=== PATIENT | female | born 1930 | race Caucasian/White ===

== ENCOUNTER 2017-03-05 14:14 | Emergency (ER) | payer OTHER, MEDICARE | END 2017-03-05 16:56 | disposition home or self-care (01) | LOC: ER 14:14 | DX: R51 Headache (principal); F32.9 Major depressive disorder, single episode, unspecified; M54.5 Low back pain; H53.8 Other visual disturbances; W19.XXXA Unspecified fall, initial encounter; Z95.0 Presence of cardiac pacemaker; I10 Essential (primary) hypertension; Z79.899 Other long term (current) drug therapy | CPT/HCPCS: 36415; 70450; 72100; 72170; 85651; 99284; 99284-25 ==